=== PATIENT | female | born 1990 | race Caucasian/White ===

== ENCOUNTER → 2022-04-12 | Outpatient (CLI) | payer MEDICAID ==
--- NOTE | 2022-04-13 20:12 | RAD ---
Sacrum and coccyx 3 views: Reason for examination: Fell down stairs 2 weeks ago with tailbone pain. There appears to be a nondisplaced fracture at the distal sacrum without displacement. The coccygeal vertebral bodies are normally aligned without definite fracture or dislocation. No abnormality seen a t the sacroiliac joints. IMPRESSION: Slight cortical irregularity at the distal sacrum which may represent minimally displaced fracture. Lumbar spine 3 views: There appears to be lumbarization of the S1 vertebral body with a mild 3 mm retrolisthesis of S1 on S 2. The remaining vertebral bodies of the lumbar spine are normally aligned anteriorly and posteriorly . The posterior elements appear to be maintained. The intervertebral discs are maintained. IMPRESSION: Mild 3 mm retrolisthesis of the lumbarized S1 vertebral body on S2. Electronically signed by: Emelia Glynn MD (04/13/2022 8:09 PM) [place]
== END ==
LOC: DXRAD 08:35
PROVIDERS: ATTEND Nurse Practitioner
DX: M43.18 Spondylolisthesis, sacral and sacrococcygeal region (principal); M54.42 Lumbago with sciatica, left side
CPT/HCPCS: 72110; 72220